=== PATIENT | female | born 1985 | race American Indian/Alaskan Native ===

== ENCOUNTER 2017-09-19 21:23 | Emergency (ER) | payer MEDICAID, OTHER ==
[2017-09-19 21:52] VITALS: BP 144/82; PULSE 87; RESP 18; TEMP 98; O2SAT 100
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
== END 2017-09-19 23:51 | disposition home or self-care (01) ==
LOC: C.ER 21:23
DX: S16.1XXA Strain of muscle, fascia and tendon at neck level, initial encounter (principal); S39.012A Strain of muscle, fascia and tendon of lower back, initial encounter; V49.59XA Passenger injured in collision with other motor vehicles in traffic accident, initial encounter; Y92.410 Unspecified street and highway as the place of occurrence of the external cause

== ENCOUNTER 2018-12-20 12:54 | Outpatient (CLI) | payer OTHER | END 2018-12-20 12:55 | disposition home or self-care (01) | LOC: C.RADH 12:54 ==